=== PATIENT | female | born 1955 | race Caucasian/White ===

== ENCOUNTER 2020-04-02 12:06 | Observation (INO) | payer MEDICARE, OTHER ==
[2020-04-02] MEDS ORDERED: Lidocaine Viscous Sol 2% 15 ml UD Cup ONE (13:21)
[2020-04-02] MEDS ORDERED: Ketorolac Tromethamine 30 MG/ML VIAL ONE (13:21)
[2020-04-02] MEDS ORDERED: Mag-Al 1200 mg/1200 mg/30 ML UDCUP ONE (13:21)
[2020-04-02 14:09] LABS: T4 Less than 2.0 ug/dL (4.87-11.72)
[2020-04-02 15:56] LABS: Troponin I 0.015 ng/mL (< 0.028)
[2020-04-02] MEDS ORDERED: Nitroglycerin 0.4 MG TAB (25 Tab Bottle) PO PRN (16:12)
[2020-04-02] MEDS ORDERED: Aspirin 325 mg Enteric Coated Tablet PO SCH (16:15)
[2020-04-02] MEDS ORDERED: Acetaminophen 325 MG TAB PO PRN (16:16)
[2020-04-02] MEDS ORDERED: Calcium Carbonate 500 MG ChewTAB PO PRN (16:16)
[2020-04-02] MEDS ORDERED: Ondansetron ODT 4 MG TAB PO PRN (16:16)
[2020-04-02] MEDS ORDERED: Ondansetron PF 4 MG/2 ML Vial IVP PRN (16:16)
--- NOTE | 2020-04-02 16:27 | PDOC.HHP ---
Hospitalist HPI - History of Present Illness Multiple complaints History of Present Illness: PCP: Dr. Jacquie Malagon ([place]) The patient is a 65/F with PMH significant for Chronic back pain, GERD, tobacco abuse that presents for multiple complaints. The patient reports generalized headache, onset 5 days ago, describes as dull, aching, max intensity this morning, 7/10, with associated nausea. Denies any recent trauma or falls. Denies max intensity at onset or stiff neck pain. Denies history of migraines. Denies history of DVT/PE, not taking hormone therapy. Denies any history of HTN. Reports some urinary incontinence, states "I had this a year ago, it was a UTI". Denies any ataxia or tinnitus. Denies any jaw claudication or fever. The patient was given reglan and 1L NS and toradol with some improvement of symptoms. Reports chest pain, located epigastric region, describes as "GERD", onset 2 days , associated with belching and pyrosis. States she has chronic GERD. Denies any heart palpitations, SOB, diaphoresis or light headedness. Has no PMH of HTN, HLD or DM. No focal weakness. No lower extremity swelling or cough or wheezing. States her family has some cardiac disease. Currently her symptoms are resolved. She was given GI cocktail in [facility]. Reports urinary incontinence, onset several days. Denies any dysuria or vaginal discharge. States, "I think it is a UTI". Denies saddle anesthesia, lower leg weakness, and fever. Denies any IV drug use. ED Course: [facility] VS 98F, 162/91, 82, 22, 89%RA EKG NSR 79 bpm, t wave abnormalities Trop negative, DD 0.52, CTA chest negative CT brain negative, refused LP ALP 115 CMP and CBC unremarkable UA unremarkable Given: 1L NS and reglan [facility]: Toradol and GI cocktail BNP 49.9, Trop negative Allergies: Daptomycin Home medications: 1. Morphine sulfate 200mg, 3 tabs po TID 2. MS Contin 30mg, 3tabs po TID prn breakthrough pain Hospitalist ROS - Review of Systems Constitutional: denies: fever, chills, sweats, weakness, malaise, other Eyes: denies: pain, vision change, conjunctivae inflammation, eyelid inflammation, redness, other ENT: denies: ear pain, ear discharge, nose pain, nose discharge, nose congestion , mouth pain, mouth swelling, throat pain, throat swelling, other Respiratory: reports: shortness of breath. denies: cough, hemoptysis, SOB with excertion, pleuritic pain Cardiovascular: reports: chest pain. denies: palpitations, orthopnea, paroxysmal noc. dyspnea, edema, light headedness Gastrointestinal: reports: nausea. denies: vomiting, abdominal pain, diarrhea, constipation, melena, hematochezia Genitourinary: reports: incontinence. denies: dysuria, frequency, hematuria Musculoskeletal: reports: back pain (chronic low back pain) Skin: denies: rash, lesions, bruising Neurological: denies: weakness, numbness, incoordination, change in speech Hospitalist History - Past Medical History Source: patient Gastrointestinal: reports: GERD Musculoskeletal: reports: Chronic low back pain ENT: reports: Other (macular degeneration) - Past Surgical History Past Surgical History: reports: Appendectomy, Cholecystectomy, Other (Bilateral amp 5th toes carpal tunnel release lumbar fusion (16yrs ago)) - Family History Family History: reports: cardiac disorder, cerebrovascular accident - Social History Smoking Status: Current every day smoker (electronic cigs) Alcohol: reports: Rare Drugs: reports: none Living Situation: Other Occupation: lives in [place] with significant other, unemployed Activity level: uses cane/walker (intermittently) - Exam General Appearance: NAD, awake alert Eye: anicteric sclera ENT: normocephalic atraumatic Neck: supple, no JVD Heart: RRR, no murmur, no gallops, no rubs, normal peripheral pulses Respiratory: no wheezes, no rales, no ronchi Respiratory - other findings: diminished Gastrointestinal: soft, non-tender (.), no guarding, no rigidity Extremities: no cyanosis, no edema Skin - other findings: scaly BLE, halux valgus Neurological: cranial nerve grossly intact, no focal deficits Musculoskeletal - other findings: obese Psychiatric: normal affect, A&O x 3 Hospitalist Results - Labs Lab results: Troponin I 0.015 ng/mL (< 0.028) 04/02/20 12:53 B-Natriuretic Peptide 49.9 pg/mL (0-100) 04/02/20 12:53 - EKG Interpretation EKG: NSR 79 bpm - Radiology Interpretation CT scan - chest Status: report reviewed by me CT scan - head Status: report reviewed by me Hospitalist H&P A/P - Problem (1) Hypoxemia Code(s): R09.02 - HYPOXEMIA Status: Acute Assessment and Plan: Admit to telemetry, observation status Expected stay < 2 midnights Patient presented with Sp02 88% in [facility], improved 98% on 2L NC Currently patient is 98% 2L NC, no respiratory distress CXR no acute process, EKG NSR, DD 0.52, CTA chest negative for PE CTA chest showed pleural based RUL nodular density measuring 5mm COVID pending HEART score 4 Will conduct cardiac workup, including trending trops, BNP and echocardiogram Will give lasix 20mg IVP x 1 dose now Continue supplemental oxygen IS q 2hr will awake Droplet precautions (2) Chest pain Code(s): R07.9 - CHEST PAIN, UNSPECIFIED Status: Acute Assessment and Plan: Heart score 4 trops negative x 2, BNP 49.9, EKG NSR with T abnormalities Will trend trops Will get echocardiogram Give ASA 324mg, then 81mg daily Will check Mag level and FLP (3) Headache Code(s): R51 - HEADACHE Status: Acute Assessment and Plan: Headache gradual onset, improved with toradol, reglan and IVF CT brain negative, declined LP in [facility] Will continue to monitor Add tylenol and toradol prn (4) Pleural nodule Code(s): R22.2 - LOCALIZED SWELLING, MASS AND LUMP, TRUNK Status: Acute Assessment and Plan: Incidental finding of pleural based RUL nodular density measuring 5mm on CTA chest (5) GERD (gastroesophageal reflux disease) Code(s): K21.9 - GASTRO-ESOPHAGEAL REFLUX DISEASE WITHOUT ESOPHAGITIS Status: Chronic Assessment and Plan: Patient symptoms improved with GI cocktail Will start protonix 40mg IVP (6) Chronic back pain Code(s): M54.9 - DORSALGIA, UNSPECIFIED; G89.29 - OTHER CHRONIC PAIN Status: Chronic Assessment and Plan: History lumbar fusion 1. Morphine sulfate ER 200mg, 3 tabs po TID 2. MS Contin 30mg, 3 tabs po TID prn breakthrough pain Will restart home meds (7) Obesity Code(s): E66.9 - OBESITY, UNSPECIFIED Status: Chronic Assessment and Plan: diet (8) Tobacco abuse Code(s): Z72.0 - TOBACCO USE Status: Chronic Assessment and Plan: Smokes since teenager, currently uses [employer] Start NRT Counseling for tobacco cessation - Plan Plan: SCDS for DVT prophylaxis Protonix GI prophylaxis Consult PT DNAR SILAS is significant other, Moe Lyn at [phone] Ray
[2020-04-02] MEDS ORDERED: Nicotine 14 MG PATCH TD SCH (16:30)
[2020-04-02 17:00] LABS: Troponin I 0.028 ng/mL (< 0.028)
[2020-04-02] MEDS ORDERED: Furosemide 20 MG/2 ML VIAL SLOW IVP SCH (17:00)
[2020-04-02 17:43] VITALS: BMI 37.6
[2020-04-02] MEDS ORDERED: Pantoprazole 40 MG VIAL IVP SCH (21:00)
[2020-04-03] MEDS: Ketorolac Tromethamine 30 MG/ML VIAL IVP PRN ×2 (00:24→11:00)
[2020-04-03] MEDS ORDERED: Ketorolac Tromethamine 30 MG/ML VIAL IVP SCH (03:15)
[2020-04-03] MEDS: Morphine IR Tab 15 MG TAB PO SCH ×2 (05:08→06:10)
[2020-04-03 05:21] LABS: #Basophils 0.1 thou/uL (0.0-0.2); #Eosinphils 0.2 thou/uL (0.0-0.7); #Lymphocytes 2.3 thou/uL (1.20-3.40); #Monocytes 0.6 thou/uL (0.11-0.59); %Basophils 0.7 % (0.0-1.0); %Eosinophils 1.8 % (0.0-10.0); %Lymphocytes 22.3 % (21.0-51.0); %Monocytes 6.3 % (0.0-10.0); %Neutrophils 68.8 % (42.0-75.0); Hemoglobin 17.1 g/dL (12.0-16.0); Mean Corpuscular HGB CONC 31.3 g/dL (32.0-36.0); Mean Corpuscular Hemoglobin 28.9 pg (27.0-31.0); Mean Corpuscular Volume 92.4 fL (78.0-98.0); Mean Platelet Volume 8.2 fL (7.4-10.4); Platelet Count 206 thou/uL (130-400); RBC Distribution Width 14.3 % (11.5-14.5); Red Blood Cell (RBC) Count 5.89 mill/uL (4.20-5.40); White Blood Cell (WBC) Count 10.2 thou/uL (4.8-10.8)
[2020-04-03 05:43] LABS: ALT (SGPT) 10 U/L (8-55); AST (SGOT) 16 U/L (5-34); Alkaline Phosphatase 107 U/L (40-110); Anion Gap 14 mmol/L (10-20); BUN (Urea Nitrogen) 13 mg/dL (9.8-20.1); Bilirubin, Total 0.7 mg/dL (0.2-1.2); Calc. Creatinine Clearance 113 mL/min (70-130); Calcium 8.7 mg/dL (7.8-10.44); Carbon Dioxide 26 mmol/L (23-31); Cardiac Risk 3.4 (Less than 4.5); Chloride 103 mmol/L (98-107); Cholesterol 155 mg/dl (< 200 Desired); Estimated GFR-MDRD 70; Globulin 2.7 g/dL (2.4-3.5); Glucose 106 mg/dL (80-115); HDL Cholesterol 46 mg/dL (>60 Neg Risk); LDL Cholesterol, Calculated 95 mg/dL; Potassium 4.2 mmol/L (3.5-5.1); Protein, Total 6.7 g/dL (6.0-8.3); Sodium 139 mmol/L (136-145); Triglycerides 69 mg/dL (Less than 150)
[2020-04-03] MEDS ORDERED: Morphine IR Tab 15 MG TAB PO SCH (06:00)
[2020-04-03] MEDS: Aspirin 81 mg Enteric Coated Tablet PO SCH ×2 (07:35→08:12)
--- NOTE | 2020-04-03 10:17 | PDOC.HOSPP ---
- Subjective Encounter Date: 04/03/20 Encounter Time: 07:30 Subjective: pt is now on room air, she is asking for her pain medication, await echo and covid test - Objective Vital Signs & Weight: Vital Signs (12 hours) Temp Pulse Resp BP Pulse Ox 04/03/20 07:40 97.6 F 81 20 173/91 H 96 04/03/20 04:05 97 F L 82 14 145/85 H 95 04/03/20 00:21 97.6 F 65 12 128/72 94 L Weight Weight 233 lb 6.4 oz I&O: 04/02/20 04/03/20 04/04/20 06:59 06:59 06:59 Intake Total 300 Balance 300 Result Diagrams: 04/03/20 04:43 04/03/20 04:43 Radiology Reviewed by me: Yes EKG Reviewed by me: Yes Hospitalist ROS - Review of Systems ENT: denies: ear pain, ear discharge, nose pain, nose discharge, nose congestion , mouth pain, mouth swelling, throat pain, throat swelling, other Respiratory: denies: cough, dry, shortness of breath, hemoptysis, SOB with excertion, pleuritic pain, sputum, wheezing, other Cardiovascular: denies: chest pain, palpitations, orthopnea, paroxysmal noc. dyspnea, edema, light headedness, other Gastrointestinal: denies: nausea, vomiting, abdominal pain, diarrhea, constipation, melena, hematochezia, other Genitourinary: denies: dysuria, frequency, incontinence, hematuria, retention, other Musculoskeletal: reports: back pain. denies: neck pain, shoulder pain, arm pain , hand pain, leg pain, foot pain, other - Medication Medications: Active Medications Generic Name Dose Route Start Last Admin Trade Name Freq PRN Reason Stop Dose Admin Aspirin 81 mg 04/03/20 09:00 04/03/20 08:12 Ecotrin PO Not Given DAILY BURT Ketorolac Tromethamine 15 mg 04/02/20 17:32 04/03/20 00:24 Toradol IVP 04/07/20 17:33 15 mg Q6H PRN Administration Pain Nicotine 14 mg 04/02/20 16:30 04/02/20 17:27 Nicoderm Patch TD 14 mg Q24HR BURT Administration Pantoprazole Sodium 40 mg 04/02/20 21:00 04/02/20 19:57 Protonix IVP 40 mg HS BURT Administration - Exam General Appearance: NAD, awake alert Eye: PERRL, anicteric sclera ENT: normocephalic atraumatic, no oropharyngeal lesions Neck: supple, symmetric, no JVD, no thyromegaly Heart: RRR, no murmur, no gallops, no rubs Respiratory: CTAB, no wheezes, no rales, no ronchi Gastrointestinal: soft, non-tender, non-distended Extremities: no cyanosis, no clubbing Skin: normal turgor, no lesions Neurological: no focal deficits Musculoskeletal: normal tone, normal strength Psychiatric: normal affect, normal behavior Hosp A/P (1) Chest pain Code(s): R07.9 - CHEST PAIN, UNSPECIFIED Status: Resolved (2) Headache Code(s): R51 - HEADACHE Status: Resolved (3) Hypoxemia Code(s): R09.02 - HYPOXEMIA Status: Resolved (4) Pleural nodule Code(s): R22.2 - LOCALIZED SWELLING, MASS AND LUMP, TRUNK Status: Acute (5) Chronic back pain Code(s): M54.9 - DORSALGIA, UNSPECIFIED; G89.29 - OTHER CHRONIC PAIN Status: Chronic (6) GERD (gastroesophageal reflux disease) Code(s): K21.9 - GASTRO-ESOPHAGEAL REFLUX DISEASE WITHOUT ESOPHAGITIS Status: Chronic (7) Obesity Code(s): E66.9 - OBESITY, UNSPECIFIED Status: Chronic Qualifiers: Body mass index: BMI 37.0-37.9 (8) Tobacco abuse Code(s): Z72.0 - TOBACCO USE Status: Chronic - Plan old records reviewed/req i have confirmed her Morphin ER dose via [place], she takes 200 mg po TID, she has chronic pain, so will resume her home dose of morphin ER PO to preven withdrawl await covid test, if negative echo will be done. if OK will consider discharge medication reviewed and continue to provide symptomatic care
[2020-04-03] MEDS ORDERED: Morphine 4 MG/ML VIAL SLOW IVP PRN (10:56)
[2020-04-03 11:32] VITALS: BP 176/85; TEMP 96.5
[2020-04-03] MEDS ORDERED: Artificial Tears 18 DROP/0.9 ML EA EYE PRN (11:46)
[2020-04-03] MEDS ORDERED: Diabetic Tussin 200 MG/10 ML UDCUP PO PRN (11:46)
[2020-04-03] MEDS ORDERED: Loperamide HCl 2 MG CAP PO PRN (11:46)
[2020-04-03] MEDS ORDERED: Cepastat Lozenges 1 LOZ PO PRN (11:46)
[2020-04-03] MEDS ORDERED: Senokot S 8.6-50 MG TAB PO PRN (11:46)
[2020-04-03] MEDS ORDERED: Bisacodyl 10 MG SUPP PR PRN (11:46)
[2020-04-03] MEDS ORDERED: HYDROcodone/Acetaminophen 5/325 mg Tablet PO PRN (11:46)
[2020-04-03] MEDS ORDERED: Loratadine 10 MG TAB PO PRN (11:46)
[2020-04-03] MEDS ORDERED: hydrALAZINE 20 MG/ML VIAL SLOW IVP PRN (11:46)
[2020-04-03] MEDS ORDERED: Sodium Chloride 0.65% Nasal 44 ML BOT EA NARE PRN (11:46)
[2020-04-03 12:06] LABS: SARS-CoV-2 MS2 Positive; SARS-CoV-2 N Gene Negative; SARS-CoV-2 S Gene Negative; SARS-CoV-2 orf1ab Negative
--- NOTE | 2020-04-03 15:16 | DIS ---
DATE OF ADMISSION: 04/02/2020 DATE OF DISCHARGE: 04/03/2020 PRIMARY CARE PHYSICIAN: Dr. Jacquie Malagon. DISCHARGE DISPOSITION: Home. PRIMARY DISCHARGE DIAGNOSES: 1. Acute hypoxemia, ruled out pulmonary embolism and resolved. 2. Chest pain, ruled out acute coronary syndrome. 3. Headache, nonspecific, improved. 4. Pleural-based pleural nodule. SECONDARY DISCHARGE DIAGNOSES: 1. Chronic pain disorder. 2. Chronic low back pain. 3. Obesity with BMI 37. 4. Tobacco abuse disorder. 5. Gastroesophageal reflux disease. PRIMARY PROCEDURE/OPERATION: None. RADIOLOGIST INVESTIGATION: Chest x-ray showed no acute cardiopulmonary process. CT angiography done at [facility], which showed no evidence of pulmonary embolism. Pleural-based right upper lobe nodule 5 mm noted incidentally. SIGNIFICANT LABS: COVID-19 negative. WBC 10.2, hemoglobin 17.1, and platelet 206. BNP normal. LFT normal. Cardiac enzyme negative x2. BNP 49. DISCHARGE MEDICATIONS: The patient is taking morphine extended release 200 mg every 8 hourly and morphine immediate release 30 mg p.o. q.8 hourly. CONTRAINDICATION: None. CODE STATUS: Full code. INPATIENT DESK ASSISTANT: None. ALLERGIES: DAPTOMYCIN. DISCHARGE PLAN: Posthospital, the patient will follow up with primary care physician in 1 week. HOSPITAL COURSE: A 65-year-old female, who initially went to [facility] for generalized headache, vague chest discomfort. In the emergency room, she was slightly hypoxic with 89% on room air and that is why they did a CT angiography, which showed incidental finding of pleural nodule. There was no PE. Because of hypoxemia, that is why COVID-19 test was sent, that came back negative. The patient did not have any exposure or any recent travel to suspect any COVID-19. Echocardiography was obtained, but result is pending by the time of dictation. The patient is now on room air. Her headache resolved. She is up to her baseline and she wanted to go home today. The patient will continue all her previous medication. Healthy lifestyle measure discussed with the patient. The patient is seen and examined at bedside today. Please see my progress note from today for further detail. Job ID: [id number]
[2020-04-03] MEDS ORDERED: Morphine ER 30 MG TAB PO SCH (21:00)
[2020-04-03] MEDS ORDERED: MORPHINE 200 MG PO SCH (21:00)
[2020-04-03] MEDS ORDERED: Famotidine 20 MG TAB PO SCH (21:00)
--- NOTE | 2020-04-11 16:40 | EKG ---
Test Reason : Blood Pressure : / mmHG Vent. Rate : 070 BPM Atrial Rate : 070 BPM P-R Int : 132 ms QRS Dur : 080 ms QT Int : 434 ms P-R-T Axes : 061 004 030 degrees QTc Int : 468 ms Normal sinus rhythm Nonspecific T wave abnormality Abnormal ECG Confirmed by LYLE ROBLES DO ([id number]), editor magazine LAUREANO VILLAGRAN ([id number]) on 04/11/2020 4:39:50 PM Referred By: Confirmed By:LYLE ROBLES DO
== END 2020-04-03 16:14 | disposition home or self-care (01) ==
LOC: ERS 12:06 → 2SW 15:24
PROVIDERS: ADMIT Internal Medicine; ATTEND Internal Medicine
DX: R09.02 Hypoxemia (principal); R07.9 Chest pain, unspecified; R51 Headache; G89.29 Other chronic pain; M54.5 Low back pain; K21.9 Gastro-esophageal reflux disease without esophagitis; R22.2 Localized swelling, mass and lump, trunk; E66.9 Obesity, unspecified; Z68.37 Body mass index [BMI] 37.0-37.9, adult; Z79.899 Other long term (current) drug therapy; Z88.1 Allergy status to other antibiotic agents; Z20.828 Contact with and (suspected) exposure to other viral communicable diseases
CPT/HCPCS: 80053; 80061; 83735; 83880; 84436; 84443; 84484; 85025; 93005; 93306; 96374; 96375 ×2; 96376; 97139 ×2; 99285; G0378 ×3; U0003; 36415; 36416; 87635; C9113; J1885; J1940; J2270

== ENCOUNTER 2020-04-19 17:51 | Inpatient (IN) | payer MEDICARE, OTHER ==
[2020-04-19] MEDS ORDERED: Acetaminophen 325 MG TAB PO PRN (21:57)
--- NOTE | 2020-04-19 22:18 | PDOC.HHP ---
Hospitalist HPI - History of Present Illness Cough, malaise History of Present Illness: PCP: Jacquie Grey The patient was a transfer from [facility]. The patient is a 65/F with PMH significant for smoking and chronic pain syndrome that presents to the ER for the above complaint. The patient reports cough for the past 2 weeks, becoming productive for the past week, describes as "tapioca pudding" in color. Reports associated subjective fever/chills, malaise and chest pain x 3-4 days. Describes chest pain as generalized, only when she coughs, denies any heart palpitations, lower extremity swelling. Denies light headedness. Denies any recent travel or sick contacts. Reports COVID negative test one week ago. She has no other complaints at this time. ED Course: VS 99.1F, 178/80, 95, 18, 96% 3L NC CXR Left Upper lobe PNA CT chest negative PE WBC 14.8 LA 0.7 BNP 23.5 Trop negative Given: 1L NS vanc, cefepime and levaquin IVPB Allergies: NKDA Home Meds: unable to reconcile at bedside with patient Hospitalist ROS - Review of Systems Constitutional: reports: fever (subjective), chills, malaise Eyes: denies: pain, vision change, conjunctivae inflammation, eyelid inflammation, redness, other ENT: denies: ear pain, ear discharge, nose pain, nose discharge, nose congestion , mouth pain, mouth swelling, throat pain, throat swelling, other Respiratory: reports: cough, sputum. denies: hemoptysis, SOB with excertion Cardiovascular: reports: chest pain. denies: palpitations, orthopnea, paroxysmal noc. dyspnea, edema, light headedness Gastrointestinal: denies: nausea, vomiting, abdominal pain, diarrhea, constipation, melena, hematochezia, other Genitourinary: denies: dysuria, frequency, incontinence, hematuria, retention, other Skin: denies: rash, lesions, courtney, bruising, other Neurological: denies: weakness, numbness, incoordination, change in speech, confusion, seizures, other Hospitalist History - Past Medical History Gastrointestinal: reports: GERD Psych: reports: Depression Musculoskeletal: reports: Chronic low back pain Other Medical History: Macular degeneration chronic pain syndrome Carpal tunnel - Past Surgical History Past Surgical History: reports: Appendectomy, Cholecystectomy, Other (Bilateral amp 5th toes carpal tunnel release lumbar fusion (16yrs ago)) - Family History Family History: reports: gastrointestinal disorder - Social History Smoking Status: Current every day smoker Tobacco Type: cigarettes (1ppd x 50 years) Alcohol: reports: Rare Drugs: reports: none Living Situation: Other Occupation: lives in [place] with significant other, unemployed Activity level: independent ambulation - Exam General Appearance: NAD, awake alert Eye: anicteric sclera ENT: normocephalic atraumatic, dry oral mucosa Neck: supple, no JVD Heart: RRR, no murmur, no gallops, no rubs, normal peripheral pulses Respiratory: no wheezes, no ronchi, normal chest expansion, no tachypnea Gastrointestinal: soft, normal bowel sounds, no rigidity Extremities: no cyanosis, no edema Neurological: no focal deficits Musculoskeletal: normal tone, normal strength Psychiatric: normal affect, A&O x 3 Hospitalist Results - Labs Lab results: Troponin I 0.020 ng/mL (< 0.028) 04/19/20 18:39 - Radiology Interpretation CT scan - chest Status: report reviewed by me Chest x-ray Status: report reviewed by me Hospitalist H&P A/P - Problem (1) Sepsis Code(s): A41.9 - SEPSIS, UNSPECIFIED ORGANISM Status: Acute Assessment and Plan: Admit to telemetry floor, inpatient status Expected length of stay at least 2 midnights Patient presented to ER afebrile, tachycardic to ER WBC 14.8, LA 0.7, Blood CX pending CXR + TWYLA PNA CT chest negative PE, TWYLA dense area concerning for necrotizing infection Given Vanc, Cefipime and levaquin in ER Will continue vanc and cefepime IVPB Check Quantiferon TB, airborne precautions Patient had COVID negative 1 week ago, refuses 2nd swab Pulmonary consulted (2) CAP (community acquired pneumonia) Code(s): J18.9 - PNEUMONIA, UNSPECIFIED ORGANISM Status: Acute Assessment and Plan: Will continue vanc and cefepime IVPB (3) Chest pain Code(s): R07.9 - CHEST PAIN, UNSPECIFIED Status: Acute Assessment and Plan: Describes as pleuritic chest pain HEART score 3, low score Trop negative x 2, BNP 23.5 Likely secondary to TWYLA PNA Will trend troponins Will check TSH and Mag level Cardiac monitoring (4) Tobacco abuse Code(s): Z72.0 - TOBACCO USE Status: Chronic Assessment and Plan: 1ppd smoker Start NRT Tobacco cessation counseling (5) Chronic pain syndrome Code(s): G89.4 - CHRONIC PAIN SYNDROME Status: Chronic Assessment and Plan: Patient has PMH/SX of lumbar fusion Takes multiple opioids at home Will have nursing reconcile home meds - Plan Plan: Consult PT Pepcid GI prophylaxis LW for DVT prophylaxis Full Code Designated medical contact, Moe Lyn at [phone] Castaneda
[2020-04-19 22:51] LABS: Troponin I 0.019 ng/mL (< 0.028)
[2020-04-19 23:34] VITALS: BMI 37.7
[2020-04-19] MEDS ORDERED: Albuterol 200 PUFF (6.7GM INHALER) INH PRN (23:56)
[2020-04-20] MEDS ORDERED: Morphine IR Tab 15 MG TAB PO PRN (01:27)
[2020-04-20] MEDS: Cefepime 2 GM in Sodium Chloride 0.9% 100 ML IVPB SCH ×2 (03:07→15:55)
[2020-04-20] MEDS: Nicotine 14 MG PATCH TD SCH ×2 (03:07→21:41)
[2020-04-20] MEDS ORDERED: Vancomycin 1 GM in Premix Bag 1 BAG IVPB SCH (04:00)
[2020-04-20] MEDS: Vancomycin 1.5 GRAM/300 ML BAG 1.5 GM in Premix Bag 1 BAG IVPB SCH ×2 (04:47→16:49)
[2020-04-20] MEDS ORDERED: Lorazepam 1 MG TAB PO SCH (05:00)
[2020-04-20 05:04] LABS: #Eosinphils 0.2 thou/uL (0.0-0.7); #Monocytes 1.3 thou/uL (0.11-0.59); #Neutrophils 11.9 thou/uL (1.40-6.50); %Basophils 0.1 % (0.0-1.0); %Eosinophils 1.3 % (0.0-10.0); %Lymphocytes 13.1 % (21.0-51.0); %Monocytes 8.3 % (0.0-10.0); %Neutrophils 77.3 % (42.0-75.0); Hemoglobin 16.1 g/dL (12.0-16.0); Mean Corpuscular HGB CONC 30.5 g/dL (32.0-36.0); Mean Corpuscular Hemoglobin 28.3 pg (27.0-31.0); Mean Corpuscular Volume 92.8 fL (78.0-98.0); Mean Platelet Volume 8.1 fL (7.4-10.4); Platelet Count 222 thou/uL (130-400); RBC Distribution Width 14.4 % (11.5-14.5); Red Blood Cell (RBC) Count 5.68 mill/uL (4.20-5.40); White Blood Cell (WBC) Count 15.4 thou/uL (4.8-10.8)
[2020-04-20 05:23] LABS: Anion Gap 13 mmol/L (10-20); BUN (Urea Nitrogen) 9 mg/dL (9.8-20.1); Calc. Creatinine Clearance 129 mL/min (70-130); Calcium 8.6 mg/dL (7.8-10.44); Carbon Dioxide 30 mmol/L (23-31); Chloride 99 mmol/L (98-107); Estimated GFR-MDRD 81; Glucose 126 mg/dL (80-115); Potassium 4.2 mmol/L (3.5-5.1); Sodium 138 mmol/L (136-145)
[2020-04-20] MEDS ORDERED: Morphine ER 30 MG TAB PO SCH (06:00)
[2020-04-20] MEDS ORDERED: Enoxaparin Sodium 40 MG/0.4 ML SYRINGE SC SCH (09:00)
[2020-04-20] MEDS: MORPHINE 200 MG PO SCH ×2 (09:12→15:54)
[2020-04-20] MEDS: Famotidine 20 MG TAB PO SCH ×2 (09:13→21:41)
--- NOTE | 2020-04-20 15:42 | PDOC.HOSPP ---
- Subjective Encounter Date: 04/20/20 Encounter Time: 14:00 Subjective: Th epatient reports feeling approximately the same. She is coughing up some phlegm. No congestion. Noted to be dozing off to sleep while talking to her. Patient refuses repeat COVID test. She reports no history of TB exposure - Objective Vital Signs & Weight: Vital Signs (12 hours) Temp Pulse Resp BP Pulse Ox 04/20/20 12:08 99 F 76 20 139/69 92 L 04/20/20 09:27 98.1 F 91 18 178/96 H 93 L Weight Admit Weight 233 lb Weight 233 lb 8 oz Result Diagrams: 04/20/20 04:31 04/20/20 04:31 Hospitalist ROS - Review of Systems Constitutional: denies: fever, chills - Medication Medications: Active Medications Generic Name Dose Route Start Last Admin Trade Name Freq PRN Reason Stop Dose Admin Famotidine 20 mg 04/20/20 09:00 04/20/20 09:13 Pepcid PO 20 mg BID BURT Administration Cefepime HCl 2 gm/ Sodium 100 mls @ 200 mls/hr 04/20/20 04:00 04/20/20 03:07 Chloride IVPB 100 mls 0400,1600 BURT Administration Vancomycin HCl 1.5 gm/ Device 300 mls @ 200 mls/hr 04/20/20 05:00 04/20/20 04 :47 IVPB 300 mls 0500,1700 BURT Administration Nicotine 14 mg 04/19/20 22:00 04/20/20 03:07 Nicoderm Patch TD 14 mg Q24HR BURT Administration Morphine Er 200 Mg 0 each 04/20/20 14:00 04/20/20 09:12 Tab PO 1 each Q8HR BURT Administration - Exam General Appearance: NAD General - other findings: intermittently drowsy Eye: PERRL, anicteric sclera ENT: normocephalic atraumatic, no oropharyngeal lesions Neck: supple, no JVD Heart: RRR, no murmur, no gallops, no rubs Respiratory: CTAB Respiratory - other findings: mild rales at base Gastrointestinal: non-tender, non-distended Extremities: no cyanosis, no clubbing, no edema Skin: normal turgor, no lesions, no rashes Neurological: cranial nerve grossly intact, normal sensation to touch, no focal deficits, no new deficit Hosp A/P - Plan CTA: masslike consolidation left upper lobe attributable to pneumonia. Mediastinal and left hilar lymphadenopathy. Fatty liver. This is a 65 year old female with past medical history of chronic pain syndrome presenting with cough, chest pain and congestion, admitted for pneumonia Left upper lobe pneumonia - will send sputum for AFB - continue vanc and cefepime. - send sputum culture - quantiferon TB test pending. Will send sputm for AFB - give one dose of IV steroid - consider ID consult if no improvement Chronic pain syndrome Delirium - patient on high morphine dose at home 200 mg q8 hours, will reduce to 150 mg q8 if possible -unable to reduce it with medicines here Tobacco abuse - nicotine patch Code status: DNR
[2020-04-20] MEDS ORDERED: methylPREDNISolone Sod Succ 40 MG VIAL IVP SCH (16:00)
[2020-04-21] MEDS ORDERED: traZODone HCl 50 MG TAB PO PRN (00:11)
[2020-04-21] MEDS: MORPHINE 200 MG PO SCH ×3 (00:22→10:09)
[2020-04-21] MEDS: Cefepime 2 GM in Sodium Chloride 0.9% 100 ML IVPB SCH (04:15)
[2020-04-21 04:27] LABS: Vancomycin, Trough 12.5 ug/mL
[2020-04-21] MEDS: Vancomycin 1.5 GRAM/300 ML BAG 1.5 GM in Premix Bag 1 BAG IVPB SCH (05:11)
[2020-04-21 05:59] VITALS: TEMP 98.7
[2020-04-21] MEDS: Famotidine 20 MG TAB PO SCH (10:08)
[2020-04-21 10:22] VITALS: BP 168/78
--- NOTE | 2020-04-21 14:02 | CON ---
DATE OF CONSULTATION: HISTORY OF PRESENT ILLNESS: Rain Frazier is a 65-year-old female. She presented to the hospital on 04/19. She is a possible rule out COVID patient with pneumonia. She declined a COVID screen. She reported she had one week earlier that was negative. For 2 weeks, she has had a productive cough. She has had purulent sputum. She has had no hemoptysis. She is a smoker. She says she is feeling better. PAST MEDICAL HISTORY: Remarkable for: 1. Reflux disease. 2. History of chronic pain. 3. History of depression. 4. History of macular degeneration. 5. History of an appendectomy. 6. History of cholecystectomy. 7. History of carpal tunnel surgery. 8. History of toe amputation bilaterally. FAMILY HISTORY: Negative for lung disease in early age. She is half to one pack a day smoker for 50 years. She does not drink on a daily basis. She does not use drugs. REVIEW OF SYSTEMS: Ten-point otherwise negative. PHYSICAL EXAMINATION: GENERAL: She is in no distress. VITAL SIGNS: She is afebrile, heart rate 75, respiratory rate is 18, oximetry is 94% on room air, blood pressure 142/70. HEENT: Pupils are equal. Sclerae are anicteric. NECK: Supple. LUNGS: Distant clear. HEART: Regular rhythm. S1 and S2 are normal. ABDOMEN: Soft and nontender. EXTREMITIES: Without clubbing, cyanosis, or edema. NEUROLOGIC: Nonfocal. LABORATORY DATA: CT scan done on 04/19 shows left upper lobe alveolar infiltrate. Radiology showed neoplastic process is a consideration, but it is not. She had an unremarkable CT at the beginning of March this year with the exception of a 5 mm nodule. IMPRESSION: Pneumonia? Aspiration mediated. She was somnolent reportedly yesterday on rounds and takes 200 mg of extended morphine a day. She could be switched to Augmentin and discharged home. She is on room air. She is stable. I have recommended that she follow up either with her primary care physician or me in 6 to 8 weeks to document clearing of her radiograph. Job ID: [id number]
[2020-04-21] MEDS ORDERED: Vancomycin HCl 1.75 GM in Sodium Chloride 0.9% 500 ML IVPB SCH (16:00)
--- NOTE | 2020-04-22 04:22 | DIS ---
DATE OF ADMISSION: 04/19/2020 DATE OF DISCHARGE: 04/21/2020 DISCHARGE DIAGNOSES: 1. Left upper lobe pneumonia. 2. Delirium. 3. Leukocytosis. 4. Fatty liver. CONSULTATIONS: Pulmonary with Dr. Nomi Awad. PROCEDURES: None. BRIEF HISTORY OF PRESENT ILLNESS: This is a 65-year-old female with a past medical history of chronic pain syndrome who presented to the emergency room with productive cough over the past 1 week, subjective fevers and chills and chest pain for 3-4 days. She reported a negative COVID test one week prior. When she presented to the emergency room, she was on 3 L nasal cannula, saturating 96%. Her chest x-ray showed a left upper lobe pneumonia. Her white blood cell count was 15.4. She was given IV vancomycin and cefepime and admitted for further workup. HOSPITAL COURSE: Left upper lobe pneumonia: The patient refused another COVID test. She did report significant improvement in her cough with IV vancomycin and cefepime. She did have a QuantiFERON TB test sent, which is currently pending at this time. She did have sputum for AFB sent, which was negative x1 sample. Sputum culture preliminarily is growing moderate gram-positive cocci in clusters and few gram-positive rods. Pulmonary was consulted and felt that this most likely might have been aspiration pneumonia given the high doses of narcotics that she is on at home. He did not feel that this was TB or COVID. The patient was discharged with Augmentin for 7 days and was advised to follow up with her PCP in a week and to have her CBC repeated to see if her leukocytosis has resolved. Leukocytosis: The patient's white count was 15.4. She was adamant about going home on the day of discharge, did not want any further testing done. She should have a repeat CBC after completion of her antibiotics. Fatty liver: This was noted on her CT scan of her chest. She was advised to avoid drinking alcohol and to lose weight and to have this followed up as an outpatient. DISCHARGE PHYSICAL EXAMINATION: VITAL SIGNS: Temp 98.8, heart rate 73, respiratory rate 20, O2 saturation 93% on room air, blood pressure 168/78. GENERAL: The patient is alert, awake, oriented x3. CVS: Regular rate and rhythm with no murmurs, rubs, or gallops. LUNGS: Slightly diminished breath sounds at the bases. No crackles, wheezing, or rhonchi heard. ABDOMEN: Positive bowel sounds, soft, nontender, nondistended. EXTREMITIES: No edema. PERTINENT LABORATORY DATA: CBC 04/20: White count 15.4, hemoglobin 16.1, hematocrit 52.7, platelet count of 222. BMP 04/20: Shows slightly elevated glucose of 128. Troponin I: 0.020, 0.019. Magnesium: 1.9. TSH: 1.713. PERTINENT IMAGING: Chest x-ray 04/19: Mild pulmonary vascular congestion. Question of patchy opacity in the left mid lung. CTA thorax 04/19: Shows a masslike consolidation in the left upper lobe, likely secondary to pneumonia. There is mediastinal and left hilar lymphadenopathy. Fatty infiltration of the liver. No evidence of PE. DISCHARGE MEDICATIONS: New prescriptions: Augmentin 875-125 one tablet p.o. twice daily. Continued medications. The patient was continued on her home morphine of 200 mg p.o. q.8 hours. However, advised to try to taper this as an outpatient given the drowsiness that she had on the . This can be further managed by her PCP. DISCHARGE CONDITION: Stable. DIET: Regular diet. DISPOSITION: Home. DISCHARGE INSTRUCTIONS: The patient needs to follow up with her PCP in a week. She should have a repeat CBC done to evaluate resolution of leukocytosis. She should get a repeat chest x-ray in 6 weeks. QuantiFERON TB test is pending at this time, but AFB was negative. Consider followup of her fatty liver. Job ID: [id number] MTDD
--- NOTE | 2020-04-23 11:13 | PQF ---
SUNITA LA WHITLEY HIDALGO [id number] [facility]-235 [id number] CLINICAL DOCUMENTATION CLARIFICATION FORM: POST DISCHARGE Addendum to original discharge summary date: ____ Late entry note date: __ DATE: 04/23/2020 ATTN:WHITLEY HIDALGO Please exercise your independent, professional judgment in responding to the clarification form. Clinical indicators are provided on the bottom of this form for your review Please check appropriate box(s) to clarify if the following diagnosis has been ruled in or ruled out: Sepsis [ ] Ruled in diagnosis [ ] Continue to treat [ ] Resolved [ X] Ruled out diagnosis [ ] Cannot rule out diagnosis [ ] Other diagnosis [ ] Unable to determine For continuity of documentation, please document condition throughout progress notes and discharge summary. Thank You. CLINICAL INDICATORS - SIGNS / SYMPTOMS / LABS - Sepsis- H&P, 04/19, Bebo Avila - Temp: 98F on 04/19, 96.5L on 04/20- Vital signs - WBC: 15.4H - Laboratory report, 04/20 - ER afebrile, tachycardic-H&P, 04/19, Bebo Avila - Leukocytosis- DS, 04/21, Hazel Alarcon MD RISK FACTORS -Aspiration pneumonia- DS, 04/21, Hazel Alarcon MD -Delirium-DS, 04/21, Hazel Alarcon MD TREATMENTS - Vancomycin.IV- MAR, 04/20 [employer] Equipment Monitor [employer] Winform Viewer(This form is maintained as a part of the permanent medical record) 2014 [employer]. All Rights Reserved Vicky [email or web address]
== END 2020-04-21 13:35 | disposition home or self-care (01) | DRG 179 ==
LOC: ERS 17:51 → 2SW 20:47
PROVIDERS: ADMIT Internal Medicine; ATTEND Internal Medicine
DX: J69.0 Pneumonitis due to inhalation of food and vomit (principal); R41.0 Disorientation, unspecified; K76.0 Fatty (change of) liver, not elsewhere classified; G89.4 Chronic pain syndrome; H35.30 Unspecified macular degeneration; F17.210 Nicotine dependence, cigarettes, uncomplicated; Z66 Do not resuscitate; F32.9 Major depressive disorder, single episode, unspecified; K21.9 Gastro-esophageal reflux disease without esophagitis; R59.1 Generalized enlarged lymph nodes; Z89.421 Acquired absence of other right toe(s); Z90.49 Acquired absence of other specified parts of digestive tract; Z98.1 Arthrodesis status; Z89.422 Acquired absence of other left toe(s)
CPT/HCPCS: 36415; 80048; 80202; 83735; 84443; 85025; 86480; 87070; 87116; 87205; 87206; 93005; J0692; J1650; J2920; J3370; J3490

== ENCOUNTER 2020-06-21 17:00 | Emergency (ER) | payer MEDICARE ==
--- NOTE | 2020-06-21 18:01 | RAD ---
CHEST ONE VIEW: 06/21/20 HISTORY: Shortness of breath and bodyaches. COMPARISON: A 06/19/20 exam. Heart size is within normal limits. There are atherosclerotic changes of the aorta. The lungs appear clear of any infiltrates. Chronic appearing changes are seen. Calcified breast implants noted. Bones appear demineralized. IMPRESSION: Chronic lung change. No acute findings. POS: RENO
[2020-06-21 18:12] LABS: #Basophils 0.1 thou/uL (0.0-0.2); #Eosinphils 0.1 thou/uL (0.0-0.7); #Lymphocytes 1.9 thou/uL (1.20-3.40); #Monocytes 0.7 thou/uL (0.11-0.59); #Neutrophils 7.3 thou/uL (1.40-6.50); %Basophils 0.7 % (0.0-1.0); %Eosinophils 0.8 % (0.0-10.0); %Lymphocytes 18.7 % (21.0-51.0); %Monocytes 6.5 % (0.0-10.0); %Neutrophils 73.2 % (42.0-75.0); Hemoglobin 17.1 g/dL (12.0-16.0); Mean Corpuscular HGB CONC 32.3 g/dL (32.0-36.0); Mean Corpuscular Hemoglobin 28.9 pg (27.0-31.0); Mean Corpuscular Volume 89.4 fL (78.0-98.0); Mean Platelet Volume 8.4 fL (7.4-10.4); Platelet Count 227 thou/uL (130-400); RBC Distribution Width 13.2 % (11.5-14.5); Red Blood Cell (RBC) Count 5.92 mill/uL (4.20-5.40); White Blood Cell (WBC) Count 9.9 thou/uL (4.8-10.8)
--- NOTE | 2020-06-21 18:27 | CT ---
CT HEAD WITHOUT CONTRAST: 06/21/20 INDICATIONS: Nausea. COMPARISON: Comparison made to recent head CT of 04/02/20. Ventricles have normal size and position. There is no evidence of intracranial mass, hemorrhage, or i nfarct. No interval change. There is subtle asymmetric white matter lucencies which may represent mil d chronic ischemic change. These are stable. Sinuses and mastoids are clear. IMPRESSION: No acute process. POS: AGW
[2020-06-21 18:28] LABS: ALT (SGPT) 33 U/L (8-55); AST (SGOT) 28 U/L (5-34); Albumin 4.5 g/dL (3.4-4.8); Alkaline Phosphatase 104 U/L (40-110); Anion Gap 15 mmol/L (10-20); BUN (Urea Nitrogen) 12 mg/dL (9.8-20.1); Bilirubin, Total 0.5 mg/dL (0.2-1.2); Calc. Creatinine Clearance 0 mL/min (70-130); Calcium 9.4 mg/dL (7.8-10.44); Carbon Dioxide 24 mmol/L (23-31); Chloride 101 mmol/L (98-107); Estimated GFR-MDRD 66; Globulin 3.1 g/dL (2.4-3.5); Glucose 97 mg/dL (80-115); Potassium 4.7 mmol/L (3.5-5.1); Protein, Total 7.6 g/dL (6.0-8.3); Sodium 135 mmol/L (136-145)
[2020-06-21 18:38] LABS: Bilirubin Negative (Negative); Blood, Urine Negative (Negative); Clarity Clear (Clear); Glucose, Urine (Dipstick) Normal (Negative); Ketone, Urine Negative (Negative); Leukocyte Negative Leu/uL (Negative); Nitrite Negative (Negative); Protein, Urine (Dipstick) 10 mg/dL (Neg-Trace); Urobilinogen Normal mg/dL (Less than 2)
== END 2020-06-21 20:02 | disposition home or self-care (01) ==
LOC: ERS 17:00
DX: G62.9 Polyneuropathy, unspecified (principal); K21.9 Gastro-esophageal reflux disease without esophagitis; M86.9 Osteomyelitis, unspecified; F32.9 Major depressive disorder, single episode, unspecified; F17.210 Nicotine dependence, cigarettes, uncomplicated; Z79.899 Other long term (current) drug therapy
CPT/HCPCS: 36415; 70450; 71045; 80053; 81003; 84484; 85025; 85379; 87086; 93005; 94760

== ENCOUNTER 2020-06-28 12:03 | Outpatient (CLI) | payer MEDICARE ==
[~2020-06-28 12:03] MED LIST: Magnevist 469MG/ML 20 ML VIAL ONE
--- NOTE | 2020-06-28 14:06 | MRI ---
MRI CERVICAL SPINE WITHOUT CONTRAST: 06/28/20 INDICATIONS: Neck pain with numbness in upper extremities. Dizziness. FINDINGS: The cervical vertebrae maintain normal height and alignment. Vertebral body signal is normal. There a re mild anterior osteophytes in the vertebrae through C4-5. There are more prominent osteophytes seen anteriorly at C5-6 and C6-7. The cervical disc spaces are preserved. C2-3: No significant abnormality. C3-4: Minimal disc bulge and spondylosis. Anterior subarachnoid space is minimally effaced but preser abdi. No central canal or foraminal stenosis. C4-5: Minimal disc bulge and spondylosis. The anterior subarachnoid space is mildly effaced but is pr eserved. No central canal or foraminal stenosis. C5-6: Annular fissure is seen with disc bulge and spondylosis abutting the anterior cord. Mild right foraminal stenosis due to facet and uncinate hypertrophy. C6-7: disc bulge and spondylosis abuts and mildly compresses the anterior cord. Mild right foraminal narrowing due to uncinate hypertrophy. C7-T1: No significant abnormality. Cervical cord signal appears normally maintained. IMPRESSION: Posterior disc bulge with spondylosis abuts the anterior cord at C5-6 and C6-7, slightly more pronoun arabella at C6-7 as described above. POS: AH
--- NOTE | 2020-06-28 14:26 | MRI ---
MRI brain with and without contrast: DATE: 06/28/2020 HISTORY: 65-year-old female with dizziness TECHNIQUE: Multiplanar, multisequence MRI of the brain obtained pre and post IV injection of gadolinium based co ntrast agent. FINDINGS: There is no obstructive hydrocephalus. There is no midline shift or any other evidence of mass effect . There is no extra-axial fluid collection. There are mild chronic ischemic white matter changes due to microvascular atherosclerosis. There is otherwise no major intra-axial signal abnormality, abn ormal enhancement, mass, recent hemorrhage, or restricted diffusion. There is a thin, short, linear, approximately 6 x 2 mm T2-hypointense extra-axial lesion in the poste rior fossa, in the prepontine-premedullary cistern which indents the left side of the junction between the victorino and medulla. It exhibits magnetic susceptibility blooming artifact on gradient echo sequence. It is heterogeneously hypointense on FLAIR. It has no intrinsic T1 shortening, and it at least partially enhances. It is somewhat better visualized on the MRI of the cervical spine obtained today. IMPRESSION: 1) small enhancing lesion in the subarachnoid space of the posterior fossa, indenting the left side o f the pontomedullary junction. Etiology is uncertain. One possibility is an intracranial aneurysm, although that is not certain. Recommend further evaluation with additional imaging, beginning with MR I of internal auditory canals, with and without contrast (including 3-D CISS or FIESTA, or equivalent). (Note to medical technologist generalist: No need to repeat sequences of whole brain). Depending on the results of t hat study, the patient may need a CT angiogram of the head with contrast. 2) mild chronic ischemic white matter changes. 3) no other pathology identified in the rest of the brain.
== END 2020-06-28 12:04 | disposition home or self-care (01) ==
LOC: BICMRI 12:03
PROVIDERS: ATTEND Psychiatry & Neurology Neurology
DX: R42 Dizziness and giddiness (principal); G93.9 Disorder of brain, unspecified; I67.82 Cerebral ischemia; M47.812 Spondylosis without myelopathy or radiculopathy, cervical region; M50.922 Unspecified cervical disc disorder at C5-C6 level
CPT/HCPCS: 70553; 72141

== ENCOUNTER 2020-08-14 11:36 | Emergency (ER) | payer MEDICARE, OTHER ==
[2020-08-14 12:14] LABS: Bacteria/HPF None Seen HPF (None Seen); Bilirubin Negative (Negative); Blood, Urine Negative (Negative); Clarity Clear (Clear); Glucose, Urine (Dipstick) Normal (Negative); Ketone, Urine Negative (Negative); Leukocyte Negative Leu/uL (Negative); Nitrite Negative (Negative); Protein, Urine (Dipstick) Negative (Neg-Trace); RBC/HPF 0-3 HPF (0-3); Specific Gravity, Urine 1.008 (1.002-1.036); Squamous Epithelial 0-3 HPF (0-3); Urobilinogen Normal mg/dL (Less than 2); WBC/HPF 0-3 HPF (0-3); pH, Urine 6.5 (5.0-9.0)
[2020-08-14 12:30] LABS: #Basophils 0.1 thou/uL (0.0-0.2); #Monocytes 0.5 thou/uL (0.11-0.59); #Neutrophils 8.7 thou/uL (1.40-6.50); %Basophils 0.7 % (0.0-1.0); %Eosinophils 0.2 % (0.0-10.0); %Lymphocytes 17.9 % (21.0-51.0); %Neutrophils 77.2 % (42.0-75.0); Hemoglobin 17.5 g/dL (12.0-16.0); Mean Corpuscular Hemoglobin 29.2 pg (27.0-31.0); Mean Corpuscular Volume 88.3 fL (78.0-98.0); Mean Platelet Volume 7.8 fL (7.4-10.4); Platelet Count 294 thou/uL (130-400); RBC Distribution Width 13.7 % (11.5-14.5); Red Blood Cell (RBC) Count 6.01 mill/uL (4.20-5.40); White Blood Cell (WBC) Count 11.3 thou/uL (4.8-10.8)
[2020-08-14 12:46] LABS: ALT (SGPT) 21 U/L (8-55); AST (SGOT) 18 U/L (5-34); Albumin 4.5 g/dL (3.4-4.8); Alkaline Phosphatase 107 U/L (40-110); Anion Gap 14 mmol/L (10-20); BUN (Urea Nitrogen) 10 mg/dL (9.8-20.1); Bilirubin, Total 0.8 mg/dL (0.2-1.2); Calc. Creatinine Clearance 0 mL/min (70-130); Calcium 9.1 mg/dL (7.8-10.44); Carbon Dioxide 23 mmol/L (23-31); Chloride 102 mmol/L (98-107); Estimated GFR-MDRD 65; Glucose 118 mg/dL (80-115); Potassium 3.6 mmol/L (3.5-5.1); Protein, Total 7.5 g/dL (6.0-8.3); Sodium 135 mmol/L (136-145)
--- NOTE | 2020-08-14 15:18 | CT ---
CT ABDOMEN AND PELVIS WITH IV CONTRAST: Date: 08/14/2020 INDICATION: Abdominal pain. Comparison made to prior CT abdomen and pelvis from 2014. FINDINGS: Lung bases are clear. Liver, spleen, and pancreas unremarkable. Post cholecystectomy change. Stomach unremarkable. There is mild mural thickening of the duodenum which is nonspecific. There is mild fold thickening in the second and third portion. Small bowel otherwise unremarkable. Colon unremarkable. Scattered diverticula without evidence of diverticulitis. Adrenal glands and kidneys unremarkable. Images through the pelvis show unremarkable urinary bladder. Uterus and adnexa unremarkable. Osseous structures show postop changes at L4-5 and L5-S1. Mild anterolisthesis at L4-5 which does pro duce evidence of mild to moderate central canal stenosis. IMPRESSION: 1. Nonspecific mural thickening of the duodenum. This is nonspecific but could represent duodenitis. 2. Otherwise, no acute intra-abdominal process. POS: AH
[2020-08-14] MEDS ORDERED: Iopamidol-370 76% 500 ML 1 ML ONE (15:23)
== END 2020-08-14 14:51 | disposition home or self-care (01) ==
LOC: ERS 11:36
DX: N32.89 Other specified disorders of bladder (principal); K31.89 Other diseases of stomach and duodenum; K21.9 Gastro-esophageal reflux disease without esophagitis; M86.9 Osteomyelitis, unspecified; F32.9 Major depressive disorder, single episode, unspecified; F17.210 Nicotine dependence, cigarettes, uncomplicated
CPT/HCPCS: 36600; 74177; 80053; 81001; 85025; 93005; Q9967

== ENCOUNTER 2021-04-04 13:51 | Observation (INO) | payer MEDICARE, OTHER ==
[2021-04-04 17:31] VITALS: BMI 34.2
[2021-04-04] MEDS ORDERED: Ondansetron ODT 4 MG TAB PO PRN (19:16)
[2021-04-04] MEDS ORDERED: Acetaminophen 325 MG TAB PO PRN (19:16)
[2021-04-04] MEDS ORDERED: hydrALAZINE 20 MG/ML VIAL SLOW IVP PRN (19:16)
[2021-04-04] MEDS ORDERED: Lorazepam 1 MG TAB PO PRN (19:46)
[2021-04-04] MEDS ORDERED: Lorazepam 2 MG/ML VIAL SLOW IVP PRN (20:11)
[2021-04-04] MEDS: Nicotine 21 MG PATCH TD SCH (20:26)
[2021-04-05 04:59] LABS: Hemoglobin A1c 5.2 % (4.0-6.0)
[2021-04-05 05:07] LABS: Anion Gap 12 mmol/L (10-20); BUN (Urea Nitrogen) 16 mg/dL (9.8-20.1); Calc. Creatinine Clearance 93 mL/min (70-130); Calcium 9.2 mg/dL (7.8-10.44); Carbon Dioxide 25 mmol/L (23-31); Chloride 107 mmol/L (98-107); Cholesterol 170 mg/dl (< 200 Desired); Glucose 104 mg/dL (80-115); HDL Cholesterol 42 mg/dL (>60 Neg Risk); LDL Cholesterol, Calculated 96 mg/dL; Potassium 3.8 mmol/L (3.5-5.1); Sodium 140 mmol/L (136-145); Triglycerides 158 mg/dL (Less than 150)
[2021-04-05 05:28] LABS: Band 2 % (5-11); Eosinophils 2 % (0-10); Hemoglobin 14.2 g/dL (12.0-16.0); Lymphocytes 34 % (21-51); MDiff Complete? YES; Mean Corpuscular HGB CONC 32.1 g/dL (32.0-36.0); Mean Corpuscular Hemoglobin 29.4 pg (27.0-31.0); Mean Corpuscular Volume 91.7 fL (78.0-98.0); Mean Platelet Volume 8.7 fL (7.4-10.4); Monocytes 6 % (0-10); Neutrophil 56 % (42-75); Platelet Count 261 thou/uL (130-400); RBC Distribution Width 13.2 % (11.5-14.5); Red Blood Cell (RBC) Count 4.83 mill/uL (4.20-5.40); White Blood Cell (WBC) Count 10.8 thou/uL (4.8-10.8)
[2021-04-05] MEDS ORDERED: Aspirin 81 mg Enteric Coated Tablet PO SCH (09:00)
[2021-04-05] MEDS ORDERED: Iopamidol-370 76% 500 ML 1 ML ONE (12:51)
[2021-04-05] MEDS ORDERED: Magnevist 469MG/ML 20 ML VIAL ONE (12:54)
[2021-04-05] MEDS: Nicotine 21 MG PATCH TD SCH (20:46)
[2021-04-05] MEDS ORDERED: Melatonin 3 MG TAB PO PRN (23:06)
[2021-04-06 07:56] VITALS: BP 157/83; TEMP 97.8
== END 2021-04-06 08:53 | disposition home or self-care (01) ==
LOC: 2SE 17:20
PROVIDERS: ADMIT Internal Medicine; ATTEND Internal Medicine
DX: G25.2 Other specified forms of tremor (principal); F17.210 Nicotine dependence, cigarettes, uncomplicated; H35.30 Unspecified macular degeneration; G93.89 Other specified disorders of brain; R30.0 Dysuria; G35 Multiple sclerosis; Z23 Encounter for immunization; Z79.899 Other long term (current) drug therapy; Z88.8 Allergy status to other drugs, medicaments and biological substances
CPT/HCPCS: 70496; 70553; 80048; 80061; 82550; 83036; 84146; 85007; 85027; 90732; 95712; 95819; 95957; G0009; 36415; 90471; A9579; G0378; Q9967